=== PATIENT | female | born 1940 | race Caucasian/White ===

== ENCOUNTER 2022-04-03 10:41 | Outpatient (CLI) | payer MEDICARE, BC ==
--- NOTE | 2022-04-03 15:16 | XRAY Report ---
PROCEDURE: Knee 3 View LT INDICATIONS: L KNEE PX TECHNIQUE: 3 views of the left knee(s) were acquired. COMPARISON: None. FINDINGS: Bones: No fractures or dislocations. No suspicious bony lesions. Moderate medial compartment osteoa rthritis. Mild lateral and patellofemoral compartment osteoarthritis. Soft tissues: No joint effusion. No suspicious soft tissue calcifications. Atherosclerotic calcific ations noted. IMPRESSION: Left knee tricompartmental osteoarthritis. Reviewed by: Sakshi Mata MD, PhD on 04/03/2022 3:15 PM PDT Approved by: Sakshi Mata MD, PhD on 04/03/2022 3:15 PM PDT Station ID: [id number]
== END 2022-04-03 10:42 | disposition home or self-care (01) ==
LOC: DI.N 10:41
PROVIDERS: ATTEND Family Medicine
DX: M17.12 Unilateral primary osteoarthritis, left knee (principal)